=== PATIENT | female | born 1995 | race Caucasian/White ===

== ENCOUNTER 2017-06-02 10:06 | Emergency (ER) | payer BC ==
[2017-06-02 10:52] VITALS: BP 111/69
--- NOTE | 2017-06-02 11:49 | UC ---
Respiratory Complaint HPI - HPI Summary HPI Summary: COUGH X 1 DAY + FEVER, CHILLS, BODY ACHES, RUNNY NOSE, SORE THROAT, - History of Current Complaint Chief Complaint: UCRespiratory Stated Complaint: MORALES/RUNNY NOSE/CHILLS Time Seen by Provider: 06/02/17 11:41 Hx Obtained From: Patient Hx Last Menstrual Period: 05/24/17 Onset/Duration: Gradual Onset, Lasting Days - 1, Still Present Timing: Constant Severity Initially: Moderate Severity Currently: Moderate Pain Intensity: 7 Character: Cough: Nonproductive Aggravating Factors: Exertion, Deep Breaths Alleviating Factors: Nothing Associated Signs And Symptoms: Positive: Fever, Chills, URI, Nasal Congestion. Negative: Wheezing, Hoarseness, Sinus Discomfort - Allergies/Home Medications Allergies/Adverse Reactions: Allergies Allergy/AdvReac Type Severity Reaction Status Date / Time No Known Allergies Allergy Verified 06/02/17 10:46 Home Medications: Home Medications Norethindrone/Eth Est 1.5NF [Junel .09/09 (NF)] 1 tab PO DAILY 06/02/17 [ History Confirmed 06/02/17] PMH/Surg Hx/FS Hx/Imm Hx Previously Healthy: Yes - Surgical History Surgical History: None - Family History Known Family History: Negative: Diabetes - Social History Alcohol Use: Occasionally Substance Use Type: None Smoking Status (MU): Never Smoked Tobacco Review of Systems Constitutional: Fever, Chills, Fatigue Skin: Negative Eyes: Negative ENT: Sore Throat, Nasal Discharge Respiratory: Cough Cardiovascular: Negative Is Patient Immunocompromised?: No All Other Systems Reviewed And Are Negative: Yes Physical Exam Triage Information Reviewed: Yes Appearance: Well-Appearing, No Pain Distress, Well-Nourished Vital Signs: Initial Vital Signs Temp 100.7 F 06/02/17 10:47 Pulse 108 06/02/17 10:47 Resp 20 06/02/17 10:47 BP 111/69 06/02/17 10:47 Pulse Ox 97 06/02/17 10:47 Vital Signs Reviewed: Yes Eyes: Positive: Conjunctiva Clear ENT: Positive: Normal ENT inspection, Hearing grossly normal, Pharynx normal, Nasal congestion, Nasal drainage, TMs normal Dental Exam: Normal Neck exam: Normal Neck: Positive: Supple, Nontender, No Lymphadenopathy Respiratory: Positive: Chest non-tender, Lungs clear, Normal breath sounds, No respiratory distress Cardiovascular: Positive: RRR, No Murmur, Pulses Normal Skin Exam: Normal UC Diagnostic Evaluation - Laboratory O2 Sat by Pulse Oximetry: 97 Respiratory Course/Dx - Differential Dx/Diagnosis Provider Diagnoses: URI Discharge - Discharge Plan Condition: Stable Disposition: HOME Patient Education Materials: Upper Respiratory Infection (DC) Forms: *School Release Referrals: No Primary Care Phys,NOPCP [Primary Care Provider] - If Needed
== END 2017-06-02 11:58 | disposition home or self-care (01) ==
LOC: UCCORT 10:06
DX: J06.9 Acute upper respiratory infection, unspecified (principal)
CPT/HCPCS: 87502; 99211; G0463